=== PATIENT | female | born 1955 | race Hispanic/Latino ===

== ENCOUNTER → 2018-05-28 | Outpatient (CLI) | payer BC | END | disposition home or self-care (01) | LOC: RAH 15:20 | PROVIDERS: ATTEND Obstetrics & Gynecology | DX: Z12.31 Encounter for screening mammogram for malignant neoplasm of breast (principal) | CPT/HCPCS: 77067 ==

== ENCOUNTER → 2019-05-29 | Outpatient (CLI) | payer BC | END | disposition home or self-care (01) | LOC: RAH 09:06 | PROVIDERS: ATTEND Obstetrics & Gynecology | DX: Z12.31 Encounter for screening mammogram for malignant neoplasm of breast (principal) | CPT/HCPCS: 77067 ==

== ENCOUNTER → 2020-06-29 | Outpatient (CLI) | payer BC | END | disposition home or self-care (01) | LOC: RAH 14:45 | PROVIDERS: ATTEND Obstetrics & Gynecology | DX: Z12.31 Encounter for screening mammogram for malignant neoplasm of breast (principal) | CPT/HCPCS: 77067 ==